=== PATIENT | male | born 1990 | race Caucasian/White ===

== ENCOUNTER → 2016-10-19 | Outpatient (CLI) | payer OTHER ==
--- NOTE | 2016-10-19 10:33 | DIAGNOSTIC IMAGING REPORT ---
LEFT WRIST MIN 3 VIEWS ROUTINE CLINICAL HISTORY: LEFT WRIST PAIN S/P FALL 2 WEEKS AGO COMPARISON: None. DISCUSSION: The bones and joint spaces appear intact. There is no evidence of fracture, dislocation or bony disease. There is no evidence for soft tissue swelling. IMPRESSION: Negative study. Electronically signed by: Von Montano M.D. 10/19/2016 10:32 AM Dictated Date/Time: 10/19/2016 10:31 AM
== END | disposition home or self-care (01) ==
LOC: C.RDSM 09:13
PROVIDERS: ATTEND Family Medicine
DX: S52.122A Displaced fracture of head of left radius, initial encounter for closed fracture (principal); X58.XXXA Exposure to other specified factors, initial encounter; M25.532 Pain in left wrist